=== PATIENT | female | born 1965 | race Caucasian/White ===

== ENCOUNTER 2025-05-02 15:07 | Outpatient (CLI) | payer BC ==
--- NOTE | 2025-05-03 05:02 | CONSULTATION ---
DATE OF CONSULTATION: 05/02/2025 DICTATING PHYSICIAN: Sarita Tuttle M.S., [facility] [employer] [facility] MODIFIED BARIUM SWALLOW STUDY REPORT REFERRING PHYSICIAN: Blake Avitia MD. HISTORY OF PRESENT ILLNESS: The patient is a 59-year-old female, who consents to this evaluation. In history obtained from the patient and medical records, the patient reports symptoms of dysphagia including feeling as if foods stick at the level of her larynx. She reports that she has to burp every time that she is eating and that this has been going on for years. The patient has a history of GERD and this can lead at times to difficulty with initiating a swallow. She had had allergy tests done at the beginning of March and found that she was allergic to dairy and beans and so started to cut these items out in the beginning of March. She also has a history of hiatal hernia. The patient was seen by Dr. Blake Avitia, ENT on 03/28/2025, for a flexible fiberoptic laryngoscopy, which revealed normal [employer]/OP/BOT/HP/Larynx with mild IAH. No erythema and normal TVF mobility with mild gapping on phonation. CURRENT DIET: The patient does not consume caffeine. She does not utilize tobacco products and drinks alcohol once every 2 weeks. She consumes chocolate 2-3 times weekly. She has cut out dairy products in the last 2 months due to finding out she has an allergy to them. A typical breakfast consists of cereal with fruit, or waffle with fruit. She has leftovers for lunch. She has an afternoon snack of a banana or crackers. Dinner is between 5:00 and 5:30 p.m. and may be chicken hamburgers, tacos, burritos, or salad. She then has dessert occasionally around 7:00 p.m., which may be cookies or candy. She goes to bed between 9:30 and 10:00 p.m. MEDICATIONS: Risedronate once per month, omeprazole 20 mg p.r.n., tizanidine 2 mg p.r.n., calcium with D3 1200 mg/800 IUs daily, K2 plus D3 200 mcg, K2 10,000 IU D3, methylation complete folate 5440 mcg, B6 2 mg, B12 7000 mcg daily, glucosamine chondroitin 500 mg once daily orally, Tylenol 1000 mg p.r.n. PARAMETERS: The patient is seated in a lateral 90-degree view and administered the usual protocol of thin and nectar-thick liquids with puree and solid consistencies as well as self-regulated boluses of the liquids from the cup. RESULTS: In the oral stage of the swallow, the patient was easily able to transfer the bolus from the anterior to the posterior oral cavity. There did not appear to be any difficulty with strength and range of motion of the tongue. In the pharyngeal stage of the swallow, swallow initiation was within functional limits. Tongue base retraction was within functional limits. Elevation of the hyothyroid complex was accomplished with mildly reduced anterior movement of the hyoid and superior movement of the hyoid and epiglottic inversion within functional limits. Anterior movement of the posterior pharyngeal wall was observed. There was no pharyngeal residue noted after the tail of the bolus was passed and PES opening was within functional limits. At no time was the patient noted to penetrate or aspirate on any of the bolus sizes or consistencies. The patient was noted to have an abnormal hold time for swallows with the holding at the height of the swallow for at least 3 seconds on each of the swallows that she completed. It was noted in the lateral plane that for the puree and solid consistencies that the bolus would reside below the level of the PES opening for an extended period of time and when she would release that hold for her swallow that some of that bolus would then propel faster below the PES opening, but that there was still slowed propulsion. ANTERIOR, POSTERIOR VIEW: In the AP plane, the bolus split symmetrically between the piriform sinuses and there was no proximal movement. The bolus was noted. IMPRESSION: The patient demonstrates what appears to be a [id number] pharyngoesophageal stage swallowing disorder characterized by slowed propulsion of the bolus below the level of the PES opening for puree and solid consistencies. DIAGNOSES: R13.14, dysphagia, pharyngoesophageal phase; K21.9, gastroesophageal reflux disease. PATIENT EDUCATION: Immediately following modified barium swallow study, the patient was able to view the results. A normal anatomy of the swallowing mechanism was reviewed. The patient was educated on swallowing strategies including adding extra moisture and gravy to her food items, alternating foods and liquids, and taking smaller bites and sips. She was educated on continuing with the dietary modifications that she has been making for laryngopharyngeal reflux disease. She was frustrated that she has been making these changes, but that she is still experiencing these sensations and so she was encouraged to continue these changes for a longer period of time and perhaps following up with her GI doctor in about 2 months if she has not noticed any further changes in her swallowing symptoms. RECOMMENDATIONS: * It is recommended that the patient utilize safe swallowing strategies including adding extra moisture, gravy to food items, alternating foods and liquids, and taking smaller bites and sips. * It was recommended that the patient continue her dietary modifications for laryngopharyngeal reflux disease. LONG-TERM GOALS: The patient will maintain adequate hydration/nutrition with optimum safety and efficiency of swallow function on p.o. intake without overt signs or symptoms of aspiration for the highest possible diet level. FUNCTIONAL ORAL INTAKE: The FOIS was administered to establish and document a change in the functional eating activities with the patient over time. This is a 7-point scale with 1 indicating no oral intake and totally tube dependent and 7 indicating total oral intake with no restrictions. This patient received a 6 which indicates total oral intake with multiple consistencies without special preparation, but with specific food limitations and precautions. G-CODE: [id number]. Thank you very much for asking me to participate in the care of this kind patient. Should you have any questions regarding this evaluation or recommendations, please do not hesitate to contact me at [phone]. During this examination, 3:25 minutes of fluoroscopy time and 9.92 CAK mGy were utilized. Sarita Tuttle M.S., [facility] TID: [id number] RECEIPT: [id number] DIEGO/PAVAN DUNCAN
== END 2025-05-02 23:59 | disposition home or self-care (01) ==
LOC: RAD 15:07
PROVIDERS: ATTEND Otolaryngology
DX: R13.14 Dysphagia, pharyngoesophageal phase (principal); K21.9 Gastro-esophageal reflux disease without esophagitis
CPT/HCPCS: 74230